=== PATIENT | female | born 1990 | race Caucasian/White ===

== ENCOUNTER 2020-08-28 18:08 | Observation (INO) | payer SELFPAY ==
[2020-08-28] VITALS (12 sets, daily range): BP systolic 110–119; BP diastolic 57–60; PULSE 70–91; TEMP 36.8–36.9; O2SAT 97–99; BMI 26.4
[2020-08-28 17:19] LABS: Fetal Fibronectin Negative
[2020-08-28] MEDS: Lactated Ringers 1,000 ML 999 ML IV (17:30)
--- NOTE | 2020-08-28 18:08 | PCM.HP.OB ---
HPI - General HPI Narrative SHANE ALSTON, is a 30 F at 25.6 weeks gestation who presents from the office for overnight observation. She was seen in office for contractions and pelvic ultrasound showed cervical funneling at 20 mm. Denies any loss of fluid or vaginal bleeding. Positive movement. Maternal Data Information SOTERO Calculator Estimated Delivery Date Method Current WG Current Estimate 12/05/20 Manual 25w 6d Final SOTERO: 12/05/20 PFSH PFSH Home Medications lactobacillus combination no.4 [Probiotic] 60,000 mmu cells PO DAILY 08/28/20 [History Last Taken 08/27/20 06:00] [id number] [] tab PO 08/28/20 [History Last Taken 08/27/20 06:00] Allergy/AdvReac Type Severity Reaction Status Date / Time No Known Allergies Allergy Verified 08/28/20 18:02 ROS Eyes Eyes: Denies blurry vision, change in vision or spots in vision ENT HEENT: Denies dizziness or headache(s) Cardiovascular Cardiovascular: Denies abdominal pain, chest pain or dyspnea Respiratory/Chest Respiratory/Chest: Denies cough, dyspnea, shortness of breath at rest or shortness of breath with exertion Gastrointestinal Gastrointestinal: Denies abdominal pain, diarrhea or vomiting Genitourinary Genitourinary: Denies change in urinary stream, difficulty urinating or dysuria Musculoskeletal Musculoskeletal: Reports none Integumentary Integumentary: Denies rash Neurologic Neurologic: Denies dizziness, headache(s), memory loss or weakness Psychiatric Psychiatric: Reports none Vital Signs Vital Signs Vital Signs: 08/28/20 17:35 08/28/20 17:40 08/28/20 17:45 Pulse Rate 86 83 90 Pulse Ox 99 99 99 08/28/20 17:50 08/28/20 17:55 Pulse Rate 91 88 Pulse Ox 99 99 Weight Weight: 154 lb 5.177 oz Body Mass Index (BMI) 26.4 Physical Exam Const alert, oriented x3 and no apparent distress General Appearance: cooperative Orientation / Consciousness: awake Exam Limitations: no limitations HEENT normocephalic Head and Scalp: normal to inspection Eyes General Eye: normal appearance of both eyes Neck full ROM and no lymphadenopathy Lymph Lymphatic: no lymphadenopathy noted Chest inspection of chest normal Resp normal respiratory effort, normal air movement and clear to auscultation bilaterally Effort and Inspection: able to speak in complete sentences and symmetric chest movement Cardio regular rate and regular rhythm GI normal to inspection, nondistended, normoactive bowel sounds Manual OB Exam: dilated Closed and effaced Thick Back/Spine normal ROM Extremity full ROM and no calf tenderness Skin no rashes or lesions noted General Skin Exam: no breakdown Neuro oriented x3 and CN's II-XII intact bilaterally Psych mental status grossly normal and thought process normal Labs Labs Labs: No Data to Display Assessment & Plan (1) 25 weeks gestation of : (2) Cervical funneling affecting in second trimester: (3) Premature uterine contractions: PLAN: Admit to labor and delivery as observation status CEFM and TOCO IV fluids FFN collected and sent in office Indomethacin 25 mg PO every 6 hours x 48 hours Progesterone 200 mg vaginally daily Macrobid 100 mg PO BID x 7 days- for UA results in office, culture sent Dr. Ibarra involved in plan of care
[2020-08-28] MEDS: Indomethacin 25 MG Capsule PO (20:02)
[2020-08-28] MEDS: Nitrofurantoin Macrocrystals 100 MG Capsule PO (21:42)
[2020-08-28] MEDS: Acetaminophen 500 MG Tablet 1000 MG PO (22:08)
[2020-08-29 02:49] VITALS: BP 108/64; PULSE 72; O2SAT 98
[2020-08-29 02:50] VITALS: TEMP 36.7
[2020-08-29] MEDS: Lactated Ringers 1,000 ML 150 ML IV (04:25)
[2020-08-29] MEDS: Indomethacin 25 MG Capsule PO (04:28)
[2020-08-29 06:42] VITALS: PULSE 89; TEMP 36.7; O2SAT 98
[2020-08-29 06:43] VITALS: BP 102/52; PULSE 75
[2020-08-29 07:28] VITALS: BP 104/56; PULSE 75; TEMP 36.9
--- NOTE | 2020-08-29 08:49 | PCM.PN.BLA ---
Progress Note Patient complains less cramping overnight. Less pain over her uterine fibroid. No vaginal bleeding or leaking of fluid. Does not appreciate regular contractions. Denies any dysuria or hematuria. Denies any feeling of incomplete voiding. Physical Exam Narrative Abdomen soft, nontender, gravid, no fundal tenderness. No rebound or guarding. Const alert and no apparent distress Extremity Extremity Narrative: no edema. Assessment & Plan Assessment/Plan (1) Premature uterine contractions: PLAN: Patient stable overnight. fibronectin was negative. Tocometer shows some irritability overnight. No regular uterine contractions. Suspect that the uterine fibroid may be necrosing or growing rapidly causing some of this uterine irritability. No evidence of active labor. Per maternal- medicine recommendations will finish 48 hours of indomethacin. With negative FFN and stable course overnight, betamethasone was not recommended. Also recommended to start progesterone. Recommended pelvic rest. Follow-up in the office next week or return to labor and delivery as needed for contractions. Patient and her state understanding and agreement with the plan. Patient also had a contaminated urine, started on Macrobid for possible UTI. We will continue this until culture returns to help guide treatment or if it is negative we will stop the antibiotic. (2) Cervical funneling affecting in second trimester: (3) 25 weeks gestation of : (4) Supervision of high risk in second trimester:
--- NOTE | 2020-08-29 08:54 | DS.PCM_ITS ---
Providers Primary Care Physician: Dr. Jacquie Proctor MD Reason For Visit: OVER NIGHT OBS/RULE OUT PRE-TERM LABOR Diagnosis Discharge Diagnosis (1) Premature uterine contractions: Status: Acute Code(s): O47.9 - False labor, unspecified (2) Cervical funneling affecting in second trimester: Status: Acute Code(s): O34.32 - Maternal care for cervical incompetence, second trimester (3) 25 weeks gestation of : Status: Acute Code(s): Z3A.25 - 25 weeks gestation of (4) Supervision of high risk in second trimester: Status: Acute Code(s): O09.92 - Supervision of high risk , unspecified, second trimester Medications at Discharge Home Medications Probiotic 60,000 mmu cells PO DAILY 08/28/20 [id number]-[id number] tab PO 08/28/20 acetaminophen 1,000 mg PO Q8H PRN PRN #0 tab 08/29/20 indomethacin 25 mg PO Q6H #4 cap 08/29/20 nitrofurantoin monohyd/m-cryst 100 mg PO BID #0 cap 08/29/20 Hospital Course Operations None Procedures None Summary of Care Provided Hospital Course: Patient was admitted overnight for observation due to contractions and short cervix in . Stable was course. She was discharged home with prescriptions for Macrobid, indomethacin, and vaginal progesterone. She is to follow-up in the office next week or as needed. Weight / BMI Weight Weight: 70 kg Body Mass Index (BMI) 26.4 ABG / Lab / Microbiology Data Laboratory: Laboratory Results - last 24 hr 08/28/20 13:45 Fibronectin Negative Meaningful Use Info Meaningful Use Diagnoses (Choose all that apply): None applicable Discharge Plan Admission Reason For Visit: OVER NIGHT OBS/RULE OUT PRE-TERM LABOR Attending Provider: Senia Rebolledo Primary Care Provider: Jacquie Proctor Instructions Additional Instructions / Restrictions: If the following symptoms of illness occur, a call to your baby's healthcare provider is in order: * Blue lip color is a 911 call! * Blue or pale colored skin * Yellow skin or eyes * Patches of white found in baby's mouth * Eating poorly or refusing to eat * No stool for 48 hours and less than 6 wet diapers a day * Redness, drainage or foul odor from the umbilical cord * Does not urinate within 6 to 8 hours of circumcision * Temperature of 100.4F or more * Difficulty breathing * Repeated vomiting or several refused feedings in a row * Listlessness * Crying excessively with no known cause * An unusual or severe rash (other than prickly heat) * Frequent or successive bowel movements with excess fluid, mucous or foul order * Experiences drastic behavior changes such as increased irritability, excessive crying without a cause, extreme sleepiness or floppy arms and legs * Congested cough, running eyes or nose. If you are , call your content management consultant or healthcare provider if you observe the following: * If your baby is not effectively nursing at least 8 to 12 feedings each day. * If the baby has less than 4 wet diapers in a 24-hour period in the first week of life, and less than 6 wet diapers in a 24-hour period after the baby is 7 days old. * If your baby is not stooling 3 to 4 times a day once your milk is in greater supply. * If the baby refuses to eat for 6 to 8 hours. Discharge Orders/Prescriptions Prescriptions: New indomethacin 25 mg Capsule 25 mg PO Q6H Qty: 4 RF: 0 acetaminophen 500 mg Tablet 1,000 mg PO Q8H PRN PRN (Reason: Pain Score 1-10) Qty: 0 RF: 0 nitrofurantoin monohyd/m-cryst 100 mg Capsule 100 mg PO BID Qty: 0 RF: 0 Continued tgydycxd-cwy-Ko-FA 1 mg Tablet PO RF: 0 Probiotic 3 billion cell Capsule 60,000 mmu cells PO DAILY RF: 0 Referrals / Follow Up: Jacquie Proctor MD [Primary Care Provider] - Disposition Patient Disposition: Home, self care
== END 2020-08-29 09:00 | disposition home or self-care (01) ==
LOC: WPOUT 08-29 10:08 → WP 08-29 10:08
PROVIDERS: Admitting Provider Advanced Practice Midwife; PCP Obstetrics & Gynecology; Visit Provider Advanced Practice Midwife
DX: O47.02 False labor before 37 completed weeks of gestation, second trimester (principal); O09.92 Supervision of high risk pregnancy, unspecified, second trimester; Z3A.25 25 weeks gestation of pregnancy; O34.12 Maternal care for benign tumor of corpus uteri, second trimester; D25.9 Leiomyoma of uterus, unspecified
CPT/HCPCS: 96360; 96361 ×4; 59025; 59050; 82731; 99218; J7120; G0378

== ENCOUNTER 2020-11-07 01:55 | Inpatient (IN) | payer SELFPAY ==
[2020-11-07] VITALS (15 sets, daily range): BP systolic 117–145; BP diastolic 62–84; PULSE 77–97; RESP 16–18; TEMP 36.5–36.8; BMI 29.7
[2020-11-07] MEDS: Lactated Ringers 1,000 ML 200 ML IV (02:15)
[2020-11-07 02:26] LABS: Absolute Lymphocyte Count 2.29 X10^3/uL (0.83-4.51); Absolute Neutrophil Count 6.4 X10^3/uL (2.0-7.7); Basophil# 0.05 X10^3/uL; Basophil% 0.5 % (0-1); Eosinophil# 0.07 X10^3/uL; Eosinophils% 0.7 % (0-5); Hematocrit 37.4 % (37-47); Hemoglobin 12.9 g/dL (12.0-15.0); Lymphocyte # 2.29 X10^3/ul (0.83-4.51); Lymphocyte % 24.1 % (19-41); Mean Corp Hgb Conc 34.5 g/dL (32-36); Mean Corpuscular Hgb 30.9 pg (27.0-32.0); Mean Corpuscular Volume 89.7 fL (81-99); Mean Platelet Vol. 11.6 fl (6.2-12.0); Monocyte# 0.59 X10^3/uL; Monocyte% 6.2 % (0-10); NRBC Flagged by Analyzer 0 % (0-5); Neutrophil # 6.43 X10^3/uL (2.7-7.7); Neutrophil % 67.7 % (47-70); Platelet Count 202 K/mm3 (150-450); RBC Distribution Width CV 12.4 % (11.6-14.6); RBC Distribution Width SD 40.6 fl (35.1-43.9); Red Blood Count 4.17 M/mm3 (4.2-5.4); White Blood Count 9.5 K/mm3 (4.4-11.0)
[2020-11-07] MEDS: Oxytocin 30 units/NS 500 ml 30 UNITS/500 ML IV.SOLN 334 UNITS IV (02:28)
[2020-11-07] MEDS: Ketorolac 30 MG/ML Syringe IV (02:50)
--- NOTE | 2020-11-07 03:09 | PCM.HP.OB ---
HPI - General General Date of Admission: 11/07/20 HPI Narrative SHANE ALSTON, is a 30 F who presents in labor. Maternal Data Information SOTERO Calculator Estimated Delivery Date Method Current WG Current Estimate 12/05/20 Manual 36w 0d PFSH PFSH Medical History Depression Home Medications Probiotic 60,000 mmu cells PO DAILY 08/28/20 [History Last Taken 08/27/20 06:00] [id number]-[id number] tab PO 08/28/20 [History Last Taken 08/27/20 06:00] acetaminophen 1,000 mg PO Q8H PRN PRN #0 tab 08/29/20 [Rx Last Taken Unknown] nitrofurantoin monohyd/m-cryst 100 mg PO BID #0 cap 08/29/20 [Rx Last Taken Unknown] Allergy/AdvReac Type Severity Reaction Status Date / Time No Known Allergies Allergy Verified 09/11/20 13:44 Social History Smoking Status: Never smoker Vital Signs Vital Signs Vital Signs: 11/07/20 02:08 11/07/20 02:41 11/07/20 02:43 Pulse Rate 82 83 90 Blood Pressure 145/73 H 135/78 H 130/77 H BP Systolic 145 135 130 BP Diastolic 73 78 77 11/07/20 02:58 Pulse Rate 77 Blood Pressure 134/74 H BP Systolic 134 BP Diastolic 74 Physical Exam Const alert and oriented x3 GI non-tender Inspection: gravid external exam normal Narrative: cvx - C/C/+2 on admission Labs Labs Labs: Blood Type Pending Antibody Screen Pending Hct 37.4 % (37-47) Hgb 12.9 g/dL (12.0-15.0) See [facility] H&P Assessment & Plan (1) labor: QUALIFIERS: labor trimester: third trimester labor delivery status: with delivery in third trimester Fetus number: single or unspecified fetus Qualified Code(s): O60.14X0 - labor third trimester with delivery third trimester, not applicable or unspecified COMMENT: @ 36 weeks PLAN: Admit to L&D Patient presented in active labor & had a precipitous delivery - see operative note
--- NOTE | 2020-11-07 03:21 | EX.PCM.OBRPT ---
Assessment & Plan (1) labor: QUALIFIERS: Fetus number: single or unspecified fetus labor delivery status: with delivery in third trimester labor trimester: third trimester Qualified Code(s): O60.14X0 - labor third trimester with delivery third trimester, not applicable or unspecified COMMENT: @ 36 weeks Maternal Data Information SOTERO Calculator Estimated Delivery Date Method Current WG Current Estimate 12/05/20 Manual 36w 0d Vaginal Delivery Maternal Presentation Maternal Presentation: Active Labor Operative Information Date of Procedure: 11/07/20 Pre-Operative Diagnosis: labor Post-Operative Diagnosis: Same Surgery / Procedure Performed: Spontaneous Vaginal Delivery Type of Anesthesia: Local with 1% Lidocaine Estimated Blood Loss: 300ml Findings Description of Procedure: Patient prepped & draped when C/C/+2. She pushed well to deliver the head. head gently guided to allow delivery of anterior and posterior shoulders. No excess traction placed on head. Body delivered and 3VC clamped & cut in delayed fashion. Placenta delivered with gentle traction and good uterine tone obtained. Presentation: JESSICA Amniotic Membrane Rupture Type: Spontaneous Amniotic Fluid Description: Clear Placental Delivery Description: Expressed Placenta Disposition: [facility] Specimen(s) Removed: Placenta Cord Vessel Description: 3 Vessels Cord Entanglement: None Infant A Gender: Male (Nathen) (1 minute): 7 (5 minute): 8 Delayed Cord Clamping: Yes Post Vaginal Delivery Medications Given After Delivery: IV Pitocin Laceration: 2nd degree (perineal - repaired with 3-0 vicryl) Complication Complications: None
[2020-11-07] MEDS: 0.9% Saline Lock 10 ML Syringe IV (05:00)
[2020-11-07] MEDS: Acetaminophen 500 MG Tablet 1000 MG PO (10:20)
--- NOTE | 2020-11-07 15:00 | CASEMGMT ---
Social Work Labor and Delivery Unit Consult received and noted for maternal history of depression and anxiety. Chart reviewed in preparation for consult. Spoke with nursing who reports the mother of baby is exhausted without much sleep, and sleeping now. Agreed to follow up at a later time to allow for MOB to get caught up on some rest. Plan: Social work to follow up at later time. -LASHAE Urbano, AUTHORIZATION REPRESENTATIVE
[2020-11-08] VITALS (7 sets, daily range): BP systolic 103–141; BP diastolic 53–86; PULSE 78–100; RESP 16–18; TEMP 36.4–36.6
[2020-11-08] MEDS: Acetaminophen 500 MG Tablet 1000 MG PO ×3 (02:09→19:23)
--- NOTE | 2020-11-08 08:35 | PCM.PN.OB ---
Subjective Subjective Patient seen at bedside. Resting comfortably. going well with support. Denies any headache, sob, cp or dizziness. Ambulating and voiding without difficulty. Desires discharge home but infant failed initial car seat challenge. Objective Data Objective Data Vital Signs: Vital Signs Temp Pulse Resp BP 97.7 F L 89 18 123/78 H 11/08/20 02:06 11/08/20 02:06 11/08/20 02:06 11/08/20 02:06 Oxygen Delivery Method Room Air Weight: 173 lb Body Mass Index (BMI) 29.7 Intake & Output: Intake and Output for Last 24 Hours 11/06/20 11/07/20 11/08/20 23:59 23:59 23:59 Intake Total 543.33 / 543.33 Output Total 400 / 400 Balance 143.33 / 143.33 Lab / Micro Data Result Diagrams: 11/07/20 02:15 Micro: Microbiology 11/07/20 02:48 Mucosa - Nose SARS-CoV-2 Antigen (Rapid) - Final ROS Eyes Eyes: Denies blurry vision, change in vision or spots in vision ENT HEENT: Denies dizziness or headache(s) Cardiovascular Cardiovascular: Denies abdominal pain, chest pain or dyspnea Respiratory/Chest Respiratory/Chest: Denies cough, dyspnea, shortness of breath at rest or shortness of breath with exertion Gastrointestinal Gastrointestinal: Denies abdominal pain, diarrhea or vomiting Genitourinary Genitourinary: Denies change in urinary stream, difficulty urinating or dysuria Musculoskeletal Musculoskeletal: Reports none Integumentary Integumentary: Denies rash Neurologic Neurologic: Denies dizziness, headache(s), memory loss or weakness Physical Exam Const alert and no apparent distress General Appearance: cooperative and comfortable Exam Limitations: no limitations HEENT normocephalic Eyes General Eye: normal appearance of both eyes Neck full ROM General: normal visual inspection Chest Chest: symmetrical chest wall rise Resp normal respiratory effort and normal air movement Effort and Inspection: symmetric chest movement Auscultation: clear to auscultation bilaterally Cardio regular rate and regular rhythm GI normal to inspection, nondistended, normoactive bowel sounds Back/Spine normal ROM Extremity full ROM and no calf tenderness General Extremity: normal exam except as noted Skin no rashes or lesions noted Neuro CN's II-XII intact bilaterally Psych mental status grossly normal Assessment & Plan (1) (spontaneous vaginal delivery): (2) Precipitous delivery: (3) Perineal laceration, second degree, delivered: (4) delivery: PLAN: PPD #1 - Routine care support Anticipate discharge home tomorrow after 's car seat challenge repeat
--- NOTE | 2020-11-08 17:20 | CASEMGMT ---
Note Referral Source: WP Housekeeper Nanny Reason for Referral: History of anxiety and depression NEVILLE called dicer operator Wale and she advised had failed carseat test so patient and will NOT be discharged today. Repeat carseat test on Tuesday. SW met with patient, her and in the room. Patient gave permission to speak to this writer producer in the presence of her . Patient's /FOB held the and appeared to be interacting appropriately with the nb. Patient/MOB also was noted to be smiling when speaking of the and who the looked like etc. Mom: Jocelyn Merchant PNC: JOSE R Schwarz Control: No plans Marty: Nathen Lyons : 11/07/20 Apgars: 78 Weight: 2730 grams Breast Feeding Boat Joiner: [facility] No other children Housing: Patient, and FOB reside in a house in [facility] Transportation: Patient reports she drives and has access to vehicle Supplies: Patient and FOB confirmed they have all supplies including bassinet/crib with firm mattress, car seat, clothing etc. Supports: Patient reports that her supports are the FOB/, her mother, who resides 5 minutes away, her sister who resides 1 1/2 hour away, and her yazidi support. Education: Patient graduated HS. She has no learning issues or delays. 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 Patient said that it is a very low stress job. Patient plans to take 8 weeks off work. Patient said that at 5 months, when the gets bigger, her mom (who also works litigation partner) will help with care of the and they will be able to coordinate care. Agency Involvement: Patient reports no JFS, WIC, Legal, Counseling, CSB or other community resources. FOB: Nestor López Patient and FOB have been for 7 years. FOB appears very involved with the . FOB is employed at [employer] and plans to take next week off work. FOB has no other children. FOB reports no MH/AOD/DV issues Patient reports issues with depression mainly. Patient said that in 2013 she was suicidal but not hospitalized due to having good support. Patient said that she feels she has been doing very good for the past year and the FOB confirmed that patient has been doing very good. Patient has never been on medication nor has attended counseling or therapy. Patient said that she has done some good healing. Patient said that she journals, does physical exercising, and socializes as efforts to minimize her depression symptoms. Patient said that a trigger was her friend dying. Patient said that she feels she is doing very good. Patient said that she had a scare related to August when diagnosed with PTL. Patient said that she used that time to practice methods to reduce her anxiety as I don't want to be the anxious mom. Patient also talked about positive support and mentors from her yazidi. Patient denied any current SI/HI. NEVILLE explained that [facility] is always available if patient is in crisis. Patient said that she is looking forward to being at home and cleaning the house and other activities as she was on restrictions due to the PTL during the summer. SW educated patient on Post depression and stated that if patient is unable to do ADL's or if symptoms of baby blues last for 5 days to notify her MD. Patient verbalized understanding. Patient said that she is also open to counseling in the future. Patient denied any AOD or cigarette use. Patient was provided with resource on 10 facts regarding depression and anxiety and mothers, Post Support information with phone number, [facility] mom support, and Post depression check list, Back to sleep handout, [facility] resources, counseling information and One Line resources for depression and anxiety. NEVILLE spoke to Crystal, patient's RN. She reports no concerns. Plan: Home at discharge Lin HENDRIX
[2020-11-09] MEDS: Ibuprofen 600 MG Tablet PO (02:08)
[2020-11-09 02:25] VITALS: BP 116/67; PULSE 82; RESP 18; TEMP 36.5
[2020-11-09 07:20] VITALS: BP 120/51; PULSE 78; RESP 16; TEMP 36.3
--- NOTE | 2020-11-09 08:35 | PCM.PN.OB ---
Subjective Subjective Patient seen at bedside. passed car seat challenge today and will be discharged home. with minimal support. Denies any pain. Desires discharge home. Objective Data Objective Data Vital Signs: Vital Signs Temp Pulse Resp BP 97.4 F L 78 16 120/51 L 11/09/20 07:20 11/09/20 07:20 11/09/20 07:20 11/09/20 07:20 Oxygen Delivery Method Room Air Weight: 173 lb Body Mass Index (BMI) 29.7 Intake & Output: Intake and Output for Last 24 Hours 11/07/20 11/08/20 11/09/20 23:59 23:59 23:59 Intake Total 543.33 / 543.33 Output Total 400 / 400 Balance 143.33 / 143.33 Lab / Micro Data Result Diagrams: 11/07/20 02:15 Micro: Microbiology 11/07/20 02:48 Mucosa - Nose SARS-CoV-2 Antigen (Rapid) - Final ROS Eyes Eyes: Denies blurry vision, change in vision or spots in vision ENT HEENT: Denies dizziness or headache(s) Cardiovascular Cardiovascular: Denies abdominal pain, chest pain or dyspnea Respiratory/Chest Respiratory/Chest: Denies cough, dyspnea, shortness of breath at rest or shortness of breath with exertion Gastrointestinal Gastrointestinal: Denies abdominal pain, diarrhea or vomiting Genitourinary Genitourinary: Denies change in urinary stream, difficulty urinating or dysuria Musculoskeletal Musculoskeletal: Reports none Integumentary Integumentary: Denies rash Neurologic Neurologic: Denies dizziness, headache(s), memory loss or weakness Psychiatric Psychiatric: Reports none Physical Exam Const alert and no apparent distress General Appearance: cooperative and comfortable Exam Limitations: no limitations HEENT normocephalic Eyes General Eye: normal appearance of both eyes Neck full ROM General: normal visual inspection Chest Chest: symmetrical chest wall rise Resp normal respiratory effort and normal air movement Effort and Inspection: symmetric chest movement Auscultation: clear to auscultation bilaterally Cardio regular rate and regular rhythm GI normal to inspection, nondistended, normoactive bowel sounds Back/Spine normal ROM Extremity full ROM and no calf tenderness General Extremity: normal exam except as noted Skin no rashes or lesions noted Neuro CN's II-XII intact bilaterally Psych mental status grossly normal Assessment & Plan (1) Perineal laceration, second degree, delivered: (2) Precipitous delivery: (3) delivery: PLAN: PPD 2 Routine care Discharge home with follow up in office
--- NOTE | 2020-11-09 08:39 | PCM.DC ---
Discharge Instructions Diet Discharge Diet: No restrictions Activity May resume sexual activity in: 6-8 weeks Weight Bearing Status: Weight bearing as tolerated Dressing / Incision Call your doctor if you observe: Fever of 101 or Higher, Inability to urinate, Using more than 1 pad per hour, Shortness of breath, Chest pain, Calf discomfort and Uncontrolled pain Follow Up Care Please Follow Up With: Senia Rebolledo CNM When: 2 weeks virtual visit/ 6 weeks in office Test Results: Test results from this visit will be discussed in further detail at your follow-up appointment, if applicable. Discharge Plan Admission Admit Date/Time: 11/07/20 01:55 Primary Reason for Your Visit: Labor Attending Provider: Santos Deras Primary Care Provider: Jacquie Proctor Instructions Patient Instructions: After a Vaginal , Breast Care After , Feel Healthy After Discharge Orders/Prescriptions Prescriptions: No Action xdfgbbmz-ggt-Ol-FA 1 mg Tablet PO RF: 0 Probiotic 3 billion cell Capsule 60,000 mmu cells PO DAILY RF: 0 Referrals / Follow Up: Jacquie Proctor MD [Primary Care Provider] - Disposition Disposition (needs filled in before D/C Order can be placed): Home, Self Care
[2020-11-09 12:31] VITALS: BP 134/75; PULSE 87; RESP 16; TEMP 36.6
[2020-11-09] MEDS: Acetaminophen 500 MG Tablet 1000 MG PO (13:12)
== END 2020-11-09 14:25 | disposition home or self-care (01) | DRG 807 ==
LOC: WPOUT 01:56 → WP 01:56
PROVIDERS: Admitting Provider Obstetrics & Gynecology; PCP Obstetrics & Gynecology; Referring Provider Obstetrics & Gynecology; Visit Provider Obstetrics & Gynecology
DX: O60.14X0 Preterm labor third trimester with preterm delivery third trimester, not applicable or unspecified (principal); Z37.0 Single live birth; Z3A.36 36 weeks gestation of pregnancy; O62.3 Precipitate labor; O70.1 Second degree perineal laceration during delivery
CPT/HCPCS: 59025; 59050; 85025; 86850; 86900; 86901; 87426; 99218; J7120; A4216; G0378

== ENCOUNTER 2022-08-06 05:35 | Observation (INO) | payer SELFPAY ==
[2022-08-06 05:03] VITALS: BP 129/65; PULSE 97
[2022-08-06 05:10] VITALS: BMI 30.6
[2022-08-06] MEDS: 0.9% Saline Lock 10 ML Syringe IV (05:55)
[2022-08-06 06:09] LABS: Absolute Lymphocyte Count 1.46 X10^3/uL (0.83-4.51); Absolute Neutrophil Count 5.5 X10^3/uL (2.0-7.7); Basophil# 0.03 X10^3/uL; Basophil% 0.4 % (0-1); Eosinophil# 0.08 X10^3/uL; Eosinophils% 1.1 % (0-5); Hematocrit 36.7 % (37-47); Hemoglobin 11.9 g/dL (12.0-15.0); Lymphocyte # 1.46 X10^3/ul (0.83-4.51); Lymphocyte % 19.2 % (19-41); Mean Corp Hgb Conc 32.4 g/dL (32-36); Mean Corpuscular Hgb 28.5 pg (27.0-32.0); Mean Platelet Vol. 10.9 fl (6.2-12.0); Monocyte% 6.6 % (0-10); NRBC Flagged by Analyzer 0 % (0-5); Neutrophil # 5.51 X10^3/uL (2.7-7.7); Neutrophil % 72.3 % (47-70); Platelet Count 201 K/mm3 (150-450); RBC Distribution Width CV 13.2 % (11.6-14.6); RBC Distribution Width SD 42.5 fl (35.1-43.9); Red Blood Count 4.17 M/mm3 (4.2-5.4); White Blood Count 7.6 K/mm3 (4.4-11.0)
[2022-08-06 06:21] VITALS: BP 128/70; PULSE 85
[2022-08-06 06:24] VITALS: TEMP 36.7; O2SAT 98
[2022-08-06 08:07] VITALS: BP 120/68; PULSE 75; TEMP 36.7
[2022-08-06 08:11] LABS: Syphilis Antibodies Non-reactive
[2022-08-06 08:15] LABS: Rubella IgG Reactive (Nonreactive)
--- NOTE | 2022-08-06 08:16 | HP.PCM.OB_ITS ---
HPI - General General Date of Admission: 08/06/22 Date of Service: 08/06/22 Chief Complaint: contractions HPI Narrative SHANE ALSTON, is a 32-year-old 2 para 1 who presented at 38 weeks gestation complaining contractions. She has had irregular contractions over the past few days. However usually when she drinks and some water and rest they improve. They continue to get worse last night she has a history of a precipitous delivery with her last so she came to labor and delivery to be evaluated. She denied any vaginal bleeding or leaking of fluid. She had good movement. She stated that when I came to see her this morning the contractions were very mild and not painful at all. She had been 4 cm in the office last week. She was found to be 5 cm by nursing this morning. Maternal Data Information SOTERO Calculator Estimated Delivery Date Method Current WG Current Estimate 12/05/20 Manual 127w 0d Final SOTERO: 08/20/22 Gestational age: 38 03/27 [facility] Medical History (Updated 08/06/22 @ 08:[address] Nereyda Snow MD) Anxiety Depression Depression Perineal laceration, second degree, delivered Precipitous delivery delivery labor (spontaneous vaginal delivery) Home Medications lactobacillus combination no.4 3 billion cell capsule (Probiotic) 60,000 mmu cells PO DAILY digestion 08/28/20 [History Last Taken 08/05/22] [id number]-[id number]-FA 1 mg tablet tab PO 08/28/20 [History Last Taken 08/05/22] Allergy/AdvReac Type Severity Reaction Status Date / Time No Known Allergies Allergy Verified 09/11/20 13:44 Surgical History History of surgery Social History Smoking Status: Never smoker History Elective abortions Hx Para 1 Spontaneous abortions Hx # Term Pregnancies Ectopic pregnancies Hx # Pregnancies Multiple births # of living children NST FHR Rate Baby A Baseline: 135 Variability:: Moderate Accelerations:: 15 x 15 Decelerations:: None (nursing called one late decel, but non repeating and may be variability in baseline) NST Reactive:: Yes FHR Category:: Category I (for > 20 min before discharge) Uterine Activity:: irreg. contractions Vital Signs Vital Signs Vital Signs: 08/06/22 05:03 08/06/22 05:03 08/06/22 06:21 Temperature Temperature Source Pulse Rate 97 Blood Pressure 129/65 H 128/70 H BP Systolic 129 128 BP Diastolic 65 70 Pulse Ox 08/06/22 06:21 08/06/22 06:24 08/06/22 06:24 Temperature Temperature Source Temporal Pulse Rate 85 Blood Pressure BP Systolic BP Diastolic Pulse Ox 98 08/06/22 06:24 08/06/22 08:07 08/06/22 08:07 Temperature 98.1 F Temperature Source Pulse Rate 75 Blood Pressure 120/68 BP Systolic 120 BP Diastolic 68 Pulse Ox Weight Weight: 80.9 kg Body Mass Index (BMI) 30.6 Labs Labs Labs: Blood Type A POSITIVE Antibody Screen NEGATIVE Hct 36.7 % (37-47) L Hgb 11.9 g/dL (12.0-15.0) L Syphilis Total Ab Non-reactive Rubella IgG Antibody Reactive (Nonreactive) Hep Bs Antigen Pending HIV 1&2 Antibody Pending Rhogam given: No Assessment & Plan (1) 38 weeks gestation of : PLAN: Plan Nonstress test overall reassuring. Majority category 1. There are few characteristic dips in the baseline and perhaps one late deceleration, but that may be over interpretation. Overall category 1 for the majority of the monitoring strip and for greater than 20 minutes before discharge. Patient is to follow-up in the office within a week or return if contractions become more regular. I offered the patient to stay in as she may be in prodromal labor and perform artificial rupture of membranes. This is reasonable since she had a history of precipitous delivery last time. However, patient desires minimal intervention and is comfortable after observation that she has not changed her cervix and her contractions have decreased in intensity with discharge home and follow-up as needed.
[2022-08-06 08:50] LABS: HIV - WCH Non-Reactive (Nonreactive); Hepatitis B Surface Antigen Non-Reactive (Nonreactive); Hepatitis C Antibody Non-Reactive (Nonreactive)
== END 2022-08-06 08:25 | disposition home or self-care (01) ==
LOC: WPOUT 05:38 → WP 05:38
PROVIDERS: Admitting Provider Advanced Practice Midwife; Referring Provider Advanced Practice Midwife; Visit Provider Advanced Practice Midwife
DX: O47.1 False labor at or after 37 completed weeks of gestation (principal); Z3A.38 38 weeks gestation of pregnancy
CPT/HCPCS: 59025; 59050; 85025; 86703; 86762; 86780; 86803; 86850; 86900; 86901; 87340; A4216

== ENCOUNTER 2022-08-13 14:35 | Inpatient (IN) | payer SELFPAY ==
[2022-08-13] VITALS (13 sets, daily range): BP systolic 121–139; BP diastolic 60–78; PULSE 72–95; TEMP 36.6–37.2; O2SAT 97–99; BMI 31.2
[2022-08-13 15:08] LABS: Absolute Lymphocyte Count 1.48 X10^3/uL (0.83-4.51); Absolute Neutrophil Count 7.4 X10^3/uL (2.0-7.7); Basophil# 0.03 X10^3/uL; Basophil% 0.3 % (0-1); Eosinophil# 0.06 X10^3/uL; Eosinophils% 0.6 % (0-5); Hematocrit 36.3 % (37-47); Hemoglobin 12.1 g/dL (12.0-15.0); Lymphocyte # 1.48 X10^3/ul (0.83-4.51); Lymphocyte % 15.4 % (19-41); Mean Corp Hgb Conc 33.3 g/dL (32-36); Mean Corpuscular Hgb 29.3 pg (27.0-32.0); Mean Corpuscular Volume 87.9 fL (81-99); Mean Platelet Vol. 11.1 fl (6.2-12.0); Monocyte% 6.3 % (0-10); NRBC Flagged by Analyzer 0 % (0-5); Neutrophil # 7.38 X10^3/uL (2.7-7.7); Neutrophil % 76.9 % (47-70); Platelet Count 258 K/mm3 (150-450); RBC Distribution Width CV 13.2 % (11.6-14.6); RBC Distribution Width SD 42.2 fl (35.1-43.9); Red Blood Count 4.13 M/mm3 (4.2-5.4); White Blood Count 9.6 K/mm3 (4.4-11.0)
[2022-08-13 15:55] LABS: Syphilis Antibodies Non-reactive
--- NOTE | 2022-08-13 17:32 | PCM.HP.OB ---
HPI - General General Date of Admission: 08/13/22 Date of Service: 08/13/22 Chief Complaint: labor HPI Narrative SHANE ALSTON, is a 32 F who presented to the office at 39w0d for a routine visit with ctx's. Cvx was found to be 6 cm dilated. No vb, lof. Good FM. Maternal Data Information SOTERO Calculator Estimated Delivery Date Method Current WG Current Estimate 12/05/20 Manual 128w 0d PFSH PFSH Medical History (Updated 08/13/22 @ 17:[address] Vanesa Hall, DO) Anxiety Depression Depression Perineal laceration, second degree, delivered Precipitous delivery delivery labor (spontaneous vaginal delivery) Home Medications lactobacillus combination no.4 3 billion cell capsule (Probiotic) 60,000 mmu cells PO DAILY digestion 08/28/20 [History Last Taken 08/05/22] [id number]-FA 1 mg tablet 1 tab PO DAILY 08/28/20 [History Last Taken 08/05/22] Allergy/AdvReac Type Severity Reaction Status Date / Time No Known Allergies Allergy Verified 09/11/20 13:44 Surgical History History of surgery Social History Smoking Status: Never smoker History Elective abortions Hx Para 1 Spontaneous abortions Hx # Term Pregnancies Ectopic pregnancies Hx # Pregnancies Multiple births # of living children NST FHR Rate Baby A Baseline: 145 Variability:: Moderate Accelerations:: 15 x 15 Decelerations:: None NST Reactive:: Yes FHR Category:: Category I Uterine Activity:: Ctx's q 6-8 min Vital Signs Vital Signs Vital Signs: 08/13/22 14:39 08/13/22 14:39 08/13/22 14:38 Temperature Temperature Source Pulse Rate 95 Blood Pressure 127/70 H BP Systolic 127 BP Diastolic 70 Pulse Ox 97 08/13/22 14:38 08/13/22 14:38 08/13/22 14:38 Temperature Temperature Source Temporal Pulse Rate 95 Blood Pressure BP Systolic BP Diastolic Pulse Ox 97 08/13/22 14:38 08/13/22 17:04 08/13/22 17:04 Temperature 97.9 F Temperature Source Pulse Rate 81 Blood Pressure 134/75 H BP Systolic 134 BP Diastolic 75 Pulse Ox 08/13/22 17:04 08/13/22 17:04 08/13/22 17:04 Temperature Temperature Source Temporal Pulse Rate 85 Blood Pressure BP Systolic BP Diastolic Pulse Ox 99 08/13/22 17:04 Temperature 99.0 F Temperature Source Pulse Rate Blood Pressure BP Systolic BP Diastolic Pulse Ox Weight Weight: 182 lb Body Mass Index (BMI) 31.2 Labs Labs Labs: Blood Type A POSITIVE Antibody Screen NEGATIVE Hct 36.3 % (37-47) L Hgb 12.1 g/dL (12.0-15.0) Syphilis Total Ab Non-reactive Rubella IgG Antibody Reactive (Nonreactive) Hep Bs Antigen Non-Reactive (Nonreactive) HIV 1&2 Antibody Non-Reactive (Nonreactive) Rhogam given: No Assessment & Plan (1) 39 weeks gestation of : PLAN: Admit for routine intrapartum care. Discussed r/b/a of augmentation vs discharge home with expectant management. Patient desires to stay for augmentation of labor given she is 6 cm dilated. Cvx 6/80/0, head well applied and AROM performed with return of moderate amount of clear fluid. labs on admission. GBS negative. Pelvis adequate and expected EFW AGA. Anticipate vaginal delivery. Discussed may possibly need to also augment with pitocin. (2) Multiparous: (3) Active labor at term:
[2022-08-13 18:49] LABS: Hepatitis C Antibody Non-Reactive (Nonreactive)
[2022-08-13 18:49] LABS: HIV - WCH Non-Reactive (Nonreactive); Hepatitis B Surface Antigen Non-Reactive (Nonreactive); Rubella IgG Reactive (Nonreactive)
[2022-08-13] MEDS: Oxytocin 10 UNITS/ML Vial IM (19:07)
[2022-08-13] MEDS: Oxytocin 15 Units/NS 250ml 15 UNITS/250 ML IV.SOLN 83 UNITS IV (19:09)
[2022-08-13] MEDS: Lidocaine 1% (20 ml mdv) 20 ML Vial INFILT (19:26)
--- NOTE | 2022-08-13 19:27 | OP.PCM_ITS ---
Problems Associated Problem List Diagnoses (1) Vaginal delivery: (2) Second degree perineal laceration: Report of Operation Date of Procedure: 08/13/22 Pre-Operative Diagnosis: 39 week gestation, single IUP, active labor at term Post-Operative Diagnosis: As above Surgery/Procedure Performed:: Repair of second degree perineal laceration Description of Surgical Findings:: VMI delivered in JONELLE position. Loose nuchal cord x 1. Normal appearing placenta with 3 VC. Apgars 8, 9. Surgeon: Vanesa Hall Type of Anesthesia: None Special Medications: None Specimen's removed: Placenta Drains: None Estimated Blood Loss (mL): 100 Fluids Replaced: N/A Description of Procedure: The patient was complete and pushing. The head of the infant was delivered in right occiput anterior position. A loose nuchal cord x1 was reduced. The anterior shoulder was delivered with gentle downward traction, followed by the posterior shoulder and body of the infant without any excessive force or delay. A vigorous viable male was delivered atraumatically placed on maternal abdomen. The cord was clamped and cut after a 60 sec delay. The placenta was delivered with gentle fundal massage. The placenta was noted to be normal- appearing and intact with three-vessel cord. 3-0 Vicryl was used to repair a second-degree perineal laceration in usual fashion. Fundus was firm and b leeding hemostatic. Sponge and needle counts were correct. Grafts/Implants Used: None Complications None
[2022-08-13] MEDS: 0.9% Saline Lock 10 ML Syringe IV (22:12)
[2022-08-14] VITALS (9 sets, daily range): BP systolic 117–132; BP diastolic 65–72; PULSE 91–194; RESP 14–16; TEMP 36.6–37.3; O2SAT 97–99
[2022-08-14] MEDS: Acetaminophen 500 MG Tablet 1000 MG PO ×2 (08:18→15:37)
--- NOTE | 2022-08-14 09:02 | PN.OBGYN_ITS ---
Subjective Subjective Patient seen at bedside. Ambulating and voiding without difficulty. Denies headache, dizziness, CP, or SOB. Lochia decreasing. with minimal support. Desires discharge home today. Objective Data Objective Data Vital Signs: Vital Signs Temp Pulse Resp BP Pulse Ox O2 Del Method 98.5 F 194 H 16 132/72 H 99 Room Air 08/14/22 07:58 08/14/22 07:58 08/14/22 07:58 08/14/22 07:58 08/14/22 07:58 08/14/22 07:58 Oxygen Delivery Method Room Air Weight: 182 lb Body Mass Index (BMI) 31.2 Intake & Output: Intake and Output for Last 24 Hours 08/12/22 08/13/22 08/14/22 23:59 23:59 23:59 Intake Total 250 / 250 Output Total 1350 / 1350 Balance -1100 / -1100 Lab / Micro Data Attestation: I reviewed the patient's lab results. Result Diagrams: 08/13/22 14:50 Labs: Laboratory Results - last 24 hr 08/13/22 14:50: WBC 9.6, RBC 4.13 L, Hgb 12.1, Hct 36.3 L, MCV 87.9, MCH 29.3, MCHC 33.3, RDW Std Deviation 42.2, RDW Coeff of [place] 13.2, Plt Count 258, MPV 11.1, Immature Gran % (Auto) 0.500, Neut % (Auto) 76.9 H, Lymph % (Auto) 15.4 L, [place] % (Auto) 6.3, Eos % (Auto) 0.6, Baso % (Auto) 0.3, Absolute Neuts (auto) 7.4, Absolute Lymphs (auto) 1.48, Nucleated RBC % 0 08/13/22 14:50: Blood Type A POSITIVE, Antibody Screen NEGATIVE 08/13/22 14:50: Syphilis Total Ab Non-reactive 08/13/22 16:55: Hep Bs Antigen Non-Reactive, HIV 1&2 Antibody Non-Reactive, Rubella IgG Antibody Reactive 08/13/22 16:56: Hepatitis C Antibody Non-Reactive ROS Eyes Eyes: Denies blurry vision, change in vision or spots in vision ENT HEENT: Denies dizziness or headache(s) Cardiovascular Cardiovascular: Denies abdominal pain, chest pain or dyspnea Respiratory/Chest Respiratory/Chest: Denies cough, dyspnea, shortness of breath at rest or shortness of breath with exertion Gastrointestinal Gastrointestinal: Denies abdominal pain, diarrhea or vomiting Genitourinary Genitourinary: Denies change in urinary stream, difficulty urinating or dysuria Musculoskeletal Musculoskeletal: Reports none Integumentary Integumentary: Denies rash Neurologic Neurologic: Denies dizziness, headache(s), memory loss or weakness Physical Exam Const alert and no apparent distress General Appearance: cooperative and comfortable Exam Limitations: no limitations HEENT normocephalic Eyes General Eye: normal appearance of both eyes Neck full ROM General: normal visual inspection Chest Chest: symmetrical chest wall rise Resp normal respiratory effort and normal air movement Effort and Inspection: symmetric chest movement Auscultation: clear to auscultation bilaterally Cardio regular rate and regular rhythm GI normal to inspection, nondistended, normoactive bowel sounds Back/Spine normal ROM Extremity full ROM and no calf tenderness General Extremity: normal exam except as noted Skin no rashes or lesions noted Neuro CN's II-XII intact bilaterally Psych mental status grossly normal Assessment & Plan (1) Second degree perineal laceration: (2) Vaginal delivery: (3) Care and examination of lactating mother: PLAN: Plan PPD 1 Routine care support D/C home with follow up in office
--- NOTE | 2022-08-14 09:04 | DCINST_ITS ---
Discharge Instructions Diet Discharge Diet: No restrictions Activity Discharge Activity: Return to Normal Activity, May Shower and May Take a Tub Bath May resume sexual activity in: 4-6 weeks Weight Bearing Status: Weight bearing as tolerated Dressing / Incision Call your doctor if you observe: Fever of 101 or Higher, Inability to urinate, Using more than 1 pad per hour, Shortness of breath, Dizziness, Swelling in the ankles, Chest pain, Calf discomfort and Uncontrolled pain Follow Up Care When: Within 10 days Test Results: Test results from this visit will be discussed in further detail at your follow- up appointment, if applicable. Discharge Plan Admission Admit Date/Time: 08/13/22 14:35 Primary Reason for Your Visit: Labor and Delivery Attending Provider: Vanesa Hall Primary Care Provider: Care Physician,Chantel Primary Discharge Orders/Prescriptions Prescriptions: No Action [id number] 1 mg Tablet 1 tab PO DAILY Probiotic 3 billion cell Capsule 60,000 mmu cells PO DAILY Referrals / Follow Up: Care Physician,No Primary [Primary Care Provider] - Disposition Disposition (needs filled in before D/C Order can be placed): Home, Self Care
== END 2022-08-14 19:50 | disposition home or self-care (01) | DRG 807 ==
LOC: WPOUT 14:35 → WP 14:35
PROVIDERS: Advanced Practice Midwife; Admitting Provider Obstetrics & Gynecology; Referring Provider Obstetrics & Gynecology; Visit Provider Obstetrics & Gynecology
DX: O70.1 Second degree perineal laceration during delivery (principal); Z37.0 Single live birth; O69.81X0 Labor and delivery complicated by cord around neck, without compression, not applicable or unspecified; Z3A.39 39 weeks gestation of pregnancy; Z64.1 Problems related to multiparity
CPT/HCPCS: 59025; 59050; 85025; 86703; 86762; 86780; 86803; 86850; 86900; 86901; 87340; 99221; A4216; G0378